=== PATIENT | male | born 1990 | race Caucasian/White ===

== ENCOUNTER 2017-05-01 08:35 | Inpatient (IN) | payer MEDICAID ==
[2017-05-01] MEDS: Celecoxib 200 MG Cap PO ONE (09:10)
[2017-05-01] MEDS ORDERED: Acetaminophen 500 MG Tab PO ONE (09:15)
[2017-05-01] MEDS ORDERED: Scopolamine 1.5 MG Transdermal Patch TOP SCH (09:15)
[2017-05-01] MEDS ORDERED: Gabapentin 300 MG Cap PO ONE (09:15)
[2017-05-01] MEDS ORDERED: Dextrose 5%-Lactated Ringers 1,000 ML IV SCH (09:15)
[2017-05-01] MEDS ORDERED: cefOXitin 2 GM in Sodium Chloride 0.9% 50 ML IV ONE (09:45)
[2017-05-01] MEDS ORDERED: Succinylcholine 200 MG/10 ML MDV ONE (10:06)
[2017-05-01] MEDS ORDERED: Neostigmine Methylsulfate 1 MG/ML 5 ML Syringe ONE (10:06)
[2017-05-01] MEDS ORDERED: Glycopyrrolate 0.2 MG/ML 5 ML MDV ONE (10:06)
[2017-05-01] MEDS ORDERED: Midazolam 1 MG/ML 2 ML SDV ONE (10:06)
[2017-05-01] MEDS ORDERED: Propofol 200 MG/20 ML SDV ONE (10:06)
[2017-05-01] MEDS ORDERED: Lactated Ringers 1,000 ML ONE ×2 (10:06→11:54)
[2017-05-01] MEDS ORDERED: Rocuronium 50 MG/5 ML Vial ONE (10:06)
[2017-05-01] MEDS ORDERED: Dexamethasone 4 MG/ML SDV ONE (10:06)
[2017-05-01] MEDS ORDERED: Ondansetron 4 MG/2 ML SDV ONE (10:06)
[2017-05-01] MEDS ORDERED: cefOXitin 2 GM Vial ONE (10:22)
[2017-05-01] MEDS ORDERED: Ropivacaine 60 ML, Dexamethasone 8 MG, EPINEPHrine 0.4 MG, Sodium Chloride 0.9% 17.6 ML NERVRT ONE ×4 (10:45)
[2017-05-01] MEDS ORDERED: Lidocaine 2% 100 MG/5 ML Syringe IVPUSH ONE (10:45)
[2017-05-01] MEDS ORDERED: Ketamine 500 MG/5 ML MDV IV ONE (10:45)
[2017-05-01] MEDS ORDERED: hydrOXYzine HCl 100 MG/2 ML SDV IM PRN (15:00)
[2017-05-01] MEDS ORDERED: Metoclopramide 10 MG/2 ML SDV IVPUSH PRN (15:00)
[2017-05-01] MEDS ORDERED: Ondansetron 4 MG/2 ML SDV IVPUSH PRN (15:00)
[2017-05-01] MEDS: Lidocaine 0.4%/D5W 2 GM/500 ML BAG IV SCH ×2 (15:00→16:02)
[2017-05-01] MEDS ORDERED: diphenhydrAMINE 50 MG/ML SDV IVPUSH PRN (15:00)
[2017-05-01] MEDS ORDERED: Labetalol 20 MG/4 ML Syringe IVPUSH PRN (15:00)
[2017-05-01] MEDS ORDERED: Pantoprazole 40 MG Vial IVPUSH SCH (16:00)
[2017-05-01] MEDS ORDERED: MVI, Adult with Vitamin K 10 ML, Thiamine 200 MG, Chromium/Copper/Mang/Selen/Zn 1 ML in... IV SCH ×4 (16:00)
[2017-05-01] MEDS: Gabapentin 250 MG/5 ML Solution ML 470 ML Bottle PO SCH ×2 (16:03→21:35)
[2017-05-01] MEDS: Acetaminophen Soln 650 MG/20.3 ML UD Cup PO SCH ×2 (16:03→21:35)
[2017-05-01] MEDS: SCOPOLAMINE PATCH CHECK TOP SCH (16:10)
[2017-05-01] MEDS: cefOXitin 2 GM in Sodium Chloride 0.9% 50 ML IV SCH ×2 (16:16→22:12)
[2017-05-01] MEDS: Heparin Sodium 5,000 Units/ML Vial SUBCUT SCH (17:17)
[2017-05-01] MEDS: Dextrose 5%-Lactated Ringers 1,000 ML IV SCH (22:14)
[2017-05-02] MEDS: Heparin Sodium 5,000 Units/ML Vial SUBCUT SCH ×3 (01:49→17:24)
[2017-05-02] MEDS: Lidocaine 0.4%/D5W 2 GM/500 ML BAG IV SCH (04:20)
[2017-05-02] MEDS: cefOXitin 2 GM in Sodium Chloride 0.9% 50 ML IV SCH (04:21)
[2017-05-02] MEDS: Dextrose 5%-Lactated Ringers 1,000 ML IV SCH (04:21)
[2017-05-02] MEDS: Acetaminophen Soln 650 MG/20.3 ML UD Cup PO SCH ×4 (04:21→21:11)
[2017-05-02] MEDS: Gabapentin 250 MG/5 ML Solution ML 470 ML Bottle PO SCH ×4 (05:39→21:11)
[2017-05-02] MEDS: Celecoxib 200 MG Cap PO SCH (08:15)
[2017-05-02] MEDS ORDERED: Dextrose 5%-Lactated Ringers 1,000 ML IV SCH (08:15)
[2017-05-02] MEDS ORDERED: Ondansetron 4 MG Tab.DIS PO PRN (08:18)
--- NOTE | 2017-05-02 09:20 | PN ---
DATE OF SERVICE: 05/02/2017 SUBJECTIVE: Burt is postop day 1. His pain has been controlled. He did not have an upper GI this morning because of the shrimp allergy. He is tolerating fluids well. He has been up ambulating several times. REVIEW OF SYSTEMS: Remainder of review of systems negative for any pertinent positives and negatives. OBJECTIVE: GENERAL: Burt Aguiar is a 26-year-old male. He is alert, oriented, quite talkative this morning. VITAL SIGNS: TPR is 97.5, 79, 20. Blood pressure 126/56. HEENT: Negative. NECK: Supple. HEART: Regular rate and rhythm. LUNGS: Clear. ABDOMEN: Dressings dry and intact. Abdominal binder is on. JUAN CARLOS drain put out 120 mL of a light pink serous drainage. EXTREMITIES: SCDs are on and there is no peripheral edema. ASSESSMENT: Laparoscopic gastric bypass surgery, liver biopsy, small bowel resection, and repair of diaphragmatic hernia for morbid obesity, hepatomegaly, foreshortened small bowel mesentery, and diaphragmatic hernia. Date of surgery 05/01/2017; surgeon, Evelio Morin MD. PLAN: 1. Decrease IV to 100 mL per hour. 2. Gastric bypass diet without cereal. 3. Dressing off, may shower. 4. Good pulmonary toilet encouraged. 5. We will evaluate p.r.bernard Zapata PA-C /[id number]
[2017-05-02] MEDS: SCOPOLAMINE PATCH CHECK TOP SCH (09:53)
[2017-05-02] MEDS ORDERED: MVI, Adult with Vitamin K 10 ML, Thiamine 200 MG, Chromium/Copper/Mang/Selen/Zn 1 ML in... IV SCH ×4 (16:00)
[2017-05-03] MEDS: Heparin Sodium 5,000 Units/ML Vial SUBCUT SCH (03:01)
[2017-05-03] MEDS: Acetaminophen Soln 650 MG/20.3 ML UD Cup PO SCH (03:01)
[2017-05-03] MEDS: Gabapentin 250 MG/5 ML Solution ML 470 ML Bottle PO SCH (05:56)
[2017-05-03] MEDS: Celecoxib 200 MG Cap PO SCH (08:12)
[2017-05-03] MEDS ORDERED: Cyanocobalamin (Vitamin B12) 1,000 MCG/ML SDV IM ONE (09:00)
--- NOTE | 2017-05-03 09:36 | OR ---
DATE OF PROCEDURE: 05/01/2017 PREOPERATIVE DIAGNOSIS: Morbid obesity. POSTOPERATIVE DIAGNOSES: 1. Morbid obesity. 2. Marked hepatomegaly. 3. Foreshortened, extremely fatty infiltrated, small bowel mesentery requiring small bowel resection to allow adequate mobility of jejunojejunostomy. 4. Paraesophageal diaphragmatic hernia. OPERATIVE PROCEDURES: 1. Laparoscopic Pearl-en-Y gastric bypass with long limb gastroenterostomy (26316). 2. Julito-Cut needle liver biopsy (43192). 3. Small bowel resection to facilitate mobility of jejunojejunostomy (11351). 4. Repair of paraesophageal diaphragmatic hernia (08177). ANESTHESIA: General. CALCIMINER: Sinai Zapata PA-C. INDICATIONS FOR PROCEDURE: This 26-year-old is presenting with longstanding morbid obesity and increasingly significant comorbidities. After preoperative evaluation and discussion, he wished to proceed with a gastric bypass procedure. Potential risks of the procedure including bleeding, infection, leaks from various GI tract closures, problems with bowel obstruction over time, along with the possibility of cardiopulmonary, septic, or hemorrhagic complications leading to were discussed, and the patient wishes to proceed. DETAILS OF PROCEDURE: The patient was taken to the operating room and placed in a supine position. After general endotracheal anesthesia was induced, he was converted to a lithotomy position and an orogastric tube was placed. Using continuous ultrasound, bilateral subcostal transversus abdominis plane blocks were placed using the standard formula. Following this, the abdomen was prepped and draped. At 15 cm inferior and 5 cm left of xiphoid process, a transverse incision was made and peritoneal cavity entered under direct vision with an Optiview trocar and inflated to 15 mmHg of CO2. Laparoscope was then reinserted. No underlying trocar insertion site injuries were seen. Following this, 5 additional trocars were placed across the upper and mid abdomen, and general exploration was undertaken. The patient was noted to have marked hepatomegaly with liver grossly fatty infiltrated, roughly 3 times normal in terms of total volume. The Julito-Cut needle biopsies were obtained from the left lobe of liver. Minimal bleeding from the biopsy site was controlled with electrocautery. At this point, the omentum was divided off the midline at the level of the transverse colon. This allowed identification of the small bowel to the ligament of Treitz. Small bowel was then traced out 150 cm distal to that point and was divided transversely with a ALLEY stapler. Small bowel was then traced out an additional 200 cm, which would, therefore, provide a Pearl limb of 200 cm. The overall mesentery at this point was extremely fattened and foreshortened. Given this, roughly 15 cm of the biliopancreatic limb was resected with division of the underlying mesentery with Harmonic scalpel. The small bowel was then divided with a ALLEY puga load. The small bowel specimen was then delivered from the field. At that level, then the jejunojejunostomy was accomplished with internal firing of the Endo- ALLEY 60 mm stapler. The common opening was closed transversely with the same stapler, the angles anastomosed, and the mesenteric defect approximated with some 0 Ethibond seromuscular stitch, along with fibrin sealant. The Pearl limb was then able to be mobilized to an antecolic approach up to the level of the gastroesophageal junction without tension. The liver was then retracted anteriorly, and the patient was noted to have a moderate-sized paraesophageal hernia with prolapse of some of the perigastric fat and stomach in a plane anterior to the course of the esophagus. This was reduced and the peritoneum overlying it incised and reflected downward. The anterior repair of the diaphragmatic hernia was then accomplished with a series of 0 Ethibond sutures reinforced with PTFE pledgets. At this point, the gastrointestinal balloon catheter was inflated to 15 mL and pulled up snugly against the EG junction, gastric wall over the apex balloon was then marked with electrocautery and balloon catheter pulled up from the esophagus. The lesser omental tissue adjacent to gastric cardia was then incised, allowing dissection behind the stomach at that level. The pouch formation was initiated with a transverse firing of the ALLEY stapler at the level of the cauterized ba of the stomach and then completed with 2 additional firings of ALLEY stapler up to and through the angle of His. Upon completion of the pouch, both staple lines were noted to be intact. The anvil of a 25 mm EEA stapler was then attached to [place] sump type tube. The latter was brought down through the mouth and taken out through a small opening in the gastric pouch, allowing the anvil likewise to be pulled down to within the gastric pouch. The divided end of the Pearl limb was then opened, main body of the EEA stapler passed several centimeters in the lumen of small bowel, brought up the anvil and united with it, thus creating the gastrojejunostomy. Upon removal of the stapler, double donuts of mucosa were noted within it. Small bowel was closed off with a vascular staple line. Gastrojejunostomy was then reinforced with some 3-0 Vicryl seromuscular stitch, along with fibrin sealant. A leak test was accomplished with injection of 120 mL of air into the gastric pouch while it was submerged with a cefoxitin-containing saline solution. No leaks were identified. One Leif-Jacobsen drain was then placed through the left lateral trocar site and positioned adjacent to the gastrojejunostomy and from there up into the splenic fossa. The trocars were then sequentially removed, and the peritoneal cavity deflated. The incision was closed with some 4-0 Vicryl skin stitch and dressing applied. The drain was affixed with a 4-0 Vicryl stitch as well. The patient was taken to the recovery room in a satisfactory condition. Physician market research assistant, Sinai Zapata, played an essential role in assisting in this case, helping to position the patient, retract structures as needed, as well as suturing and cutting sutures when indicated. Her presence improved patient safety and decreased the operative time. Evelio Morin MD /[id number]
[2017-05-03 10:44] VITALS: BP 120/65
--- NOTE | 2017-05-04 09:00 | DISCH ---
ADMISSION DIAGNOSIS: Morbid obesity. DISCHARGE DIAGNOSES: Status post Pearl-en-Y laparoscopic gastric bypass surgery, liver biopsy, small bowel resection, repair of diaphragmatic hernia for morbid obesity, hepatomegaly, foreshortened small bowel mesentery, and diaphragmatic hernia. DATE OF SURGERY: 05/01/2017. SURGEON: Evelio Morin M.D. HISTORY: Burt Aguiar is a pleasant 26-year-old male with longstanding history of morbid obesity and increasing comorbidities. After preoperative evaluation and discussion of possible risks and possible complications, he wished to proceed with surgical procedure. HOSPITAL COURSE: Burt had his surgery on 05/01/2017. He had no operative complications. On postop day #1, he was started on a step-2 gastric bypass diet with no cereal. His activity was good. He tolerated his step-2 gastric bypass diet. Vital signs remained stable and he was able to be discharged to home on postop day #2. PHYSICAL EXAMINATION: GENERAL: Burt Aguiar is a 26-year-old male. VITAL SIGNS: Height is 5 feet and 10.5 inches. Weight is 372 pounds. TPR 97.2, 71, 18, blood pressure 118/49. HEENT: Negative. NECK: Supple. HEART: Regular rate and rhythm. LUNGS: Clear. ABDOMEN: Incisions look good. JUAN CARLOS drain will be removed, 4x4s over JUAN CARLOS drain site. Abdominal binder is on. EXTREMITIES: Without peripheral edema. DISPOSITION: Discharged to home. CONDITION: Stable and improving. FOLLOWUP APPOINTMENT: With Sinai Zapata PA-C, at [facility] on 05/10/2017 at 11:15 a.m. DISCHARGE MEDICATIONS: Home medications: 1. Tylenol 650 mg/20.3 mL oral q.6 hours, he is to take this for 14 days as scheduled. 2. Vitamin B12, 1000 mcg sublingual. 3. Neurontin 300 mg 4 times a day daily and 250 mg/5 mL for 14 days. 4. Toradol 10 mg q.6 hours for 5 days, take with protein shakes. 5. Multivitamin one chewable twice daily. 6. Omeprazole 20 mg orally twice daily, #28. 7. Zofran 4 mg ODT q.4 hours p.r.n. for nausea. He is to discontinue taking his calcium citrate, vitamin D3, ibuprofen, and vitamin B. DISCHARGE DIET: Drink 8 to 10 glasses of water a day. Diet is step-2 gastric bypass diet with no cereal. ACTIVITY: As tolerated. No lifting greater than 10 pounds for 2 weeks. Driving: Do not drive for 1 week. Shower/bathing: May shower. DISCHARGE INSTRUCTIONS: Notify provider of fever, nausea, or vomiting. Keep site clean and dry. Wear abdominal binder for 2 weeks and as tolerated. Use incentive spirometer 10 times every hour while awake.
== END 2017-05-03 10:30 | disposition home or self-care (01) | DRG 621 ==
LOC: JP.SDS 08:35 → EDSTATUS 12:15 → JP.MS 13:03 → JP.2SS 13:15
PROVIDERS: ADMIT Surgery; ATTEND Surgery
PROC: 0D164ZA Bypass Stomach to Jejunum, Percutaneous Endoscopic Approach (ICD-10-PCS; principal; 2017-05-01)
PROC: 0FB24ZX Excision of Left Lobe Liver, Percutaneous Endoscopic Approach, Diagnostic (ICD-10-PCS; principal; 2017-05-01)
PROC: 0BQS4ZZ (ICD-10-PCS; principal; 2017-05-01)
PROC: 0BQR4ZZ (ICD-10-PCS; principal; 2017-05-01)
PROC: 3E0T3BZ Introduction of Anesthetic Agent into Peripheral Nerves and Plexi, Percutaneous Approach (ICD-10-PCS; principal; 2017-05-01)
PROC: 0DB94ZX Excision of Duodenum, Percutaneous Endoscopic Approach, Diagnostic (ICD-10-PCS; principal; 2017-05-01)
DX: E66.01 Morbid (severe) obesity due to excess calories (principal); Z68.43 Body mass index [BMI] 50.0-59.9, adult; R16.0 Hepatomegaly, not elsewhere classified; K44.9 Diaphragmatic hernia without obstruction or gangrene; K92.89 Other specified diseases of the digestive system; K76.0 Fatty (change of) liver, not elsewhere classified; K21.9 Gastro-esophageal reflux disease without esophagitis; G47.33 Obstructive sleep apnea (adult) (pediatric); F50.81 Binge eating disorder; Z91.013 Allergy to seafood; Z91.048 Other nonmedicinal substance allergy status
CPT/HCPCS: 36415; 86850; 86900; 86901; 88307; 88313; A9270-GY; C9113; J0171; J0330; J0694; J1100; J1644; J2001; J2250; J2405; J2704; J2710; J2795; J3010; J3411; J3420; J7030; J7040; J7042; J7050; J7120

== ENCOUNTER 2017-05-07 23:12 | Inpatient (IN) | payer MEDICAID ==
[2017-05-07] MEDS ORDERED: HYDROmorphone 1 MG/ML Syringe IVPUSH ONE (23:32)
--- NOTE | 2017-05-07 23:38 | EDM.PDOC ---
ED HPI GENERAL MEDICAL PROBLEM - General Chief Complaint: Abdominal Pain Stated Complaint: MEDICAL VIA TRI Time Seen by Provider: 05/07/17 23:30 Source of Information: Reports: Patient, EMS, Provider History Limitations: Reports: No Limitations - History of Present Illness INITIAL COMMENTS - FREE TEXT/NARRATIVE: 26-year-old male who underwent gastric bypass 6 days ago presented to a local hospital with abdominal pain that worsened over the past 48 hours. A workup including a CT scanning revealed fairly extensive portal vein thrombosis with edema of the small bowel and possible bowel infarction. He's been given 3 mg of Dilaudid IV along with IV antibiotics and fluids. He is afebrile but continues to have significant pain. He is not tachycardic but moderately hypotensive. Fluids were continued. He was sent up for a surgical consultation. Onset: Gradual (Over the past 48 hours) Location: Reports: Abdomen Severity: Moderate Worsens with: Reports: Movement Associated Symptoms: Reports: Loss of Appetite, Malaise. Denies: Fever/Chills Abdomen Pain Score (Numeric/FACES): 10 - Related Data Allergies Allergy/AdvReac Type Severity Reaction Status Date / Time Bleach (Sodium Hypochlorite) Allergy Blisters Verified 05/01/17 08:59 shrimp Allergy Cannot Verified 04/27/17 09:38 Remember Home Meds: Home Meds Acetaminophen [Tylenol] 650 mg PO Q6H 14 Days #1 bottle 05/02/17 [Rx] Cyanocobalamin (Vitamin B-12) [Vitamin B-12] 1,000 mcg SL DAILY #100 tab.subl [Rx] Multivitamin with Iron [Animal Shapes Plus Iron] 1 each PO BID #100 tab.chew 08/06 [Rx] Ondansetron [Zofran ODT] 4 mg PO Q4H PRN #30 tab.dis 05/02/17 [Rx] Gabapentin [Neurontin] 300 mg PO QID 14 Days ml 05/03/17 [Rx] Ketorolac [Toradol] 10 mg PO Q6H #20 tab 05/03/17 [Rx] Omeprazole 20 mg PO BIDAC #28 cap.cr 05/03/17 [Rx] Past Medical History HEENT History: Reports: Allergic Rhinitis, Impaired Vision Other HEENT History: wears glasses Cardiovascular History: Reports: Heart Murmur Respiratory History: Reports: Sleep Apnea Gastrointestinal History: Reports: GERD Musculoskeletal History: Reports: Back Pain, Chronic Endocrine/Metabolic History: Reports: Obesity/BMI 30+ Dermatologic History: Reports: Eczema - Infectious Disease History Infectious Disease History: Reports: Chicken Pox, Influenza - Past Surgical History HEENT Surgical History: Reports: None Cardiovascular Surgical History: Reports: None Respiratory Surgical History: Reports: None GI Surgical History: Reports: None Endocrine Surgical History: Reports: None Musculoskeletal Surgical History: Reports: None Dermatological Surgical History: Reports: None Social & Family History - Family History HEENT: Reports: Allergic Rhinitis Cardiac: Reports: PR, Stent GI: Reports: Irritable Bowel Syndrome OBGYN: Reports: Endometriosis, Other (See Below) Other OBGYN Family History: hyperplasia Musculoskeletal: Reports: Back pain, Chronic Neurological: Reports: CVA, Migraines Psychiatric: Reports: Bipolar Endocrine/Metabolic: Reports: Diabetes, type II, Obesity/MBI 30+ Dermatologic: Reports: Urticaria Oncologic: Reports: Colon, Lung, Other (See Below) Other Oncologic Family History: testicular cancer; leomyosarcoma; teratoma - Tobacco Use Smoking Status *Q: Former Smoker Years of Tobacco use: 6 Used Tobacco, but Quit: Yes Month Tobacco Last Used: 09/2016 Second Hand Smoke Exposure: Yes - Caffeine Use Caffeine Use: Reports: None - Recreational Drug Use Recreational Drug Use: No ED ROS GENERAL - Review of Systems Review Of Systems: See Below Constitutional: Reports: Malaise. Denies: Fever GI/Abdominal: Reports: Abdominal Pain : Reports: No Symptoms Psychiatric: Reports: No Symptoms ED EXAM, GI/ABD - Physical Exam Exam: See Below Exam Limited By: No Limitations General Appearance: Alert, Mild Distress (Patient is fairly uncomfortable) Eyes: Bilateral: Normal Appearance (No jaundice) Respiratory/Chest: No Respiratory Distress, Lungs Clear Cardiovascular: Regular Rate, Rhythm GI/Abdominal Exam: Soft, Tender (Patient reacts with tenderness to palpation of the abdomen, especially the upper abdomen. His surgical incisions look excellent ) Course - Vital Signs Last Recorded V/S: Last Vital Signs Temp 98.2 F 05/07/17 23:26 Pulse 93 05/08/17 00:00 Resp 16 05/07/17 23:26 BP 145/68 H 05/08/17 00:00 Pulse Ox 94 L 05/08/17 00:00 - Orders/Labs/Meds Orders: Active Orders 24 hr Category Date Time Status Patient Status [ADT] Routine ADT 05/08/17 00:27 Active Intake and Output [RC] QSHIFT Care 05/08/17 00:28 Active Oxygen Therapy [RC] PRN Care 05/08/17 00:27 Active RT Incentive Spirometry [RC] ASDIRECTED Care 05/08/17 00:27 Active Up ad Ysabel [RC] ASDIRECTED Care 05/08/17 00:27 Active Vital Signs [RC] PER UNIT ROUTINE Care 05/08/17 00:27 Active Nothing Per Oral Diet [DIET] Diet 05/08/17 Breakfast Active BASIC METABOLIC PANEL,BMP [CHEM] AM Lab 05/08/17 05:11 Ordered CBC WITH AUTO DIFF [HEME] AM Lab 05/08/17 05:11 Ordered PACKED CELLS [RED BLOOD CELLS LP] [BBK] Stat Lab 05/07/17 23:59 Results TYPE AND SCREEN [BBK] Stat Lab 05/07/17 23:59 Results diphenhydrAMINE [Benadryl] Med 05/08/17 00:27 Active 50 mg IVPUSH Q4H PRN Abdominal Binder [OM.PC] Per Unit Routine Oth 05/08/17 00:28 Ordered Resuscitation Status Routine Resus Stat 05/08/17 00:27 Ordered Medication Orders Diphenhydramine HCl (Benadryl) 50 mg IVPUSH Q4H PRN PRN Reason: Itching Labs: Laboratory Tests 05/08/17 Range/Units 00:05 Blood Type A POSITIVE Gel Antibody Screen Negative Crossmatch See Detail Meds: Medications Generic Name Dose Route Start Last Admin Trade Name Freq PRN Reason Stop Dose Admin Diphenhydramine HCl 50 mg 05/08/17 00:27 Benadryl IVPUSH Q4H PRN Itching Discontinued Medications Generic Name Dose Route Start Last Admin Trade Name Freq PRN Reason Stop Dose Admin Bupivacaine HCl/Epinephrine Bitart Confirm 05/07/17 23:55 Marcaine 0.5%/Epinephrine 1:200,000 Administered 05/07/17 23:56 Dose 50 ml .ROUTE .STK-MED ONE Dexamethasone Confirm 05/08/17 00:13 Dexamethasone Administered 05/08/17 00:14 Dose 4 mg .ROUTE .STK-MED ONE Fentanyl Citrate Confirm 05/08/17 00:13 Fentanyl Administered 05/08/17 00:14 Dose 500 mcg .ROUTE .STK-MED ONE Glycopyrrolate Confirm 05/08/17 00:13 Robinul Administered 05/08/17 00:14 Dose 1 mg .ROUTE .STK-MED ONE Hydromorphone HCl 1 mg 05/07/17 23:32 05/07/17 23:36 Dilaudid IVPUSH 05/07/17 23:33 1 mg ONETIME ONE Administration Lactated Ringer's Confirm 05/08/17 00:37 Ringers, Lactated Administered 05/08/17 00:38 Dose 1,000 mls @ as directed .ROUTE .STK-MED ONE Neostigmine Methylsulfate Confirm 05/08/17 00:13 Neostigmine Administered 05/08/17 00:14 Dose 5 mg .ROUTE .STK-MED ONE Ondansetron HCl Confirm 05/08/17 00:13 Zofran Administered 05/08/17 00:14 Dose 4 mg .ROUTE .STK-MED ONE Propofol Confirm 05/08/17 00:13 Diprivan 20 Ml Administered 05/08/17 00:14 Dose 200 mg .ROUTE .STK-MED ONE Rocuronium [place] Confirm 05/08/17 00:13 Zemuron Administered 05/08/17 00:14 Dose 50 mg .ROUTE .STK-MED ONE Succinylcholine Chloride Confirm 05/08/17 00:13 Quelicin Administered 05/08/17 00:14 Dose 200 mg .ROUTE .STK-MED ONE - Re-Assessments/Exams Free Text/Narrative Re-Assessment/Exam: 05/07/17 23:38 IV fluids were continued, the patient was given an additional 1 [address] of Dilaudid IV. Dr. Enrique was consulted as he was expecting the patient. Departure - Departure Time of Disposition: 00:55 Disposition: Admitted As Inpatient 68 Condition: Fair Clinical Impression: Abdominal pain Qualifiers: Abdominal location: generalized Qualified Code(s): R10.84 - Generalized abdominal pain - Discharge Information
[2017-05-07] MEDS ORDERED: Bupivacaine 0.5%/EPINEPHrine 1:200,000 50 ML MDV ONE (23:55)
[2017-05-08] MEDS ORDERED: Neostigmine Methylsulfate 1 MG/ML 5 ML Syringe ONE (00:13)
[2017-05-08] MEDS ORDERED: Succinylcholine 200 MG/10 ML MDV ONE (00:13)
[2017-05-08] MEDS ORDERED: Rocuronium 50 MG/5 ML Vial ONE ×2 (00:13→01:40)
[2017-05-08] MEDS ORDERED: Propofol 200 MG/20 ML SDV ONE (00:13)
[2017-05-08] MEDS ORDERED: Dexamethasone 4 MG/ML SDV ONE (00:13)
[2017-05-08] MEDS ORDERED: Glycopyrrolate 0.2 MG/ML 5 ML MDV ONE (00:13)
[2017-05-08] MEDS ORDERED: Ondansetron 4 MG/2 ML SDV ONE (00:13)
[2017-05-08] MEDS ORDERED: diphenhydrAMINE 50 MG/ML SDV IVPUSH PRN (00:27)
[2017-05-08] MEDS ORDERED: Lactated Ringers 1,000 ML ONE (00:37)
[2017-05-08] MEDS ORDERED: Benzocaine/Cetylpyridinium/Menthol Lozenge MUCMEM PRN (02:09)
[2017-05-08] MEDS: Sodium Chloride 0.9% 1,000 ML IV SCH ×3 (03:30→20:01)
[2017-05-08] MEDS: fentaNYL/Normal Saline 600 MCG/30 ML PCA Vial IV SCH ×2 (03:31→23:45)
[2017-05-08] MEDS: Heparin Sodium/D5W 25,000 UNITS/500 ML BAG IV SCH ×2 (03:33→18:43)
--- NOTE | 2017-05-08 04:22 | CONS ---
DATE OF SERVICE: 05/08/2017 REFERRING PHYSICIAN: CONSULTING PHYSICIAN: Hesham Enrique MD REASON FOR CONSULTATION: Evaluation of bariatric patient. HISTORY OF PRESENT ILLNESS: This is a 26-year-old male, who on 05/01/2017, underwent a laparoscopic Pearl-en-Y with a small bowel resection and repair of paraesophageal hernia. The patient was advanced on his diet and was subsequently discharged on postoperative day number 2. The patient presented to an outside emergency room with abdominal pain, and a CT scan was performed. The CT scan report was requested but was not sent along with the patient tonight. However, the summation was verbally transferred to us, and it apparently shows inflammation of the jejunum in addition to portal venous thrombosis. The patient presents with pain, which is 3 to 4 out of 10, diffuse in the abdomen. PAST MEDICAL HISTORY: Sleep apnea, morbid obesity, gastroesophageal reflux disease, binge eating, obstructive sleep apnea. FAMILY HISTORY: Diabetes. SOCIAL HISTORY: He is employed in the [employer] business. REVIEW OF SYSTEMS: GENERAL: As above. SKIN: No symptoms. EYES: No symptoms. EARS: No changes. RESPIRATORY: No shortness of breath. CARDIOVASCULAR: No chest pain. GASTROINTESTINAL: Reflux as above. NEUROLOGICAL: No symptoms. PSYCH: No symptoms. PHYSICAL EXAMINATION: VITAL SIGNS: Temperature 98.2, blood pressure reported 86/51, respirations 16, and 96% on room air. GENERAL: The patient is resting comfortably. HEENT: Pupils are equal. NECK: Obese. CARDIOVASCULAR: Regular rate. RESPIRATORY: Lungs are clear to auscultation bilaterally. ABDOMEN: Bowel sounds positive. Pain with palpation, diffuse. EXTREMITIES: Full range of motion. NEUROLOGICAL: Oriented x3. PSYCH: No gross depression. LABORATORY DATA: Laboratory results were also not sent along with the patient, but the hemoglobin was reported per family as 15. IMAGING DATA: As above. ASSESSMENT AND PLAN: The patient will be taken to the operating room for diagnostic laparoscopy. This patient is a high risk patient with an active venous thrombosis. He has been heparinized at the outside facility, and he has been started on a heparin drip. Postoperatively, the patient will be placed on heparin weight based protocol. The plan will be diagnostic laparoscopy to evaluate for possible ischemic bowel. This is noted to be found that he will undergo a small resection of the affected sections. We discussed risks, benefits, alternatives, limitations including, but not limited to infection, bleeding, the risk of cardiovascular or cardiorespiratory compromise including due to the potential for pulmonary embolism. We will discuss the possibility of open surgery. The patient and family understand these risks and wish to proceed. Hesham Enrique MD /[id number] MTDD
[2017-05-08] MEDS: fentaNYL 100 MCG/2 ML SDV IVPUSH PRN ×8 (04:30→23:46)
[2017-05-08] MEDS: hydrOXYzine HCl 100 MG/2 ML SDV IM PRN ×2 (07:46→21:46)
--- NOTE | 2017-05-08 09:26 | PN ---
DATE OF SERVICE: 05/08/2017 SUBJECTIVE: The patient did well overnight. Pain is controlled. No nausea, vomiting, shortness of breath, or chest pain. OBJECTIVE: VITAL SIGNS: Stable. CARDIOVASCULAR: Regular rhythm and rate. RESPIRATORY: Lungs clear to consultation bilaterally. ABDOMEN: Dressing is intact. ASSESSMENT: Status post small bowel resection. PLAN: 1. Thrombosis. We are still awaiting the official CT scan report from [place], which was not sent to us and is currently unavailable. Nonetheless, we will continue the heparin- weight based anticoagulation protocol. 2. Small bowel resection. The drain output is blood tinged. No evidence of anastomotic leak or failure. 3. Prophylaxis. The patient is already on heparin-weight based protocol as above. SCDs are also noted. We will work on early ambulation today. 4. Diet. We will keep him n.p.o. at this time. 5. Fluid, electrolyte, nutrition. The patient had good urine output overnight. We will continue with fluids at this time and convert to maintenance fluids in the a.m. 6. Hematology. The patient's hemoglobin remained within the normal range. He does have typed and crossed units on standby, and these probably will not be used if no evidence of bleeding is noted in the next 48 hours. 7. Pain management. The patient states his pain is well controlled. The GAS PUMPER is adjunct or working effectively and we will convert this to p.o. pain medication at a later date. Hesham Enrique MD /[id number]
--- NOTE | 2017-05-08 09:57 | PCM.CONS ---
H&P History of Present Illness - General Date of Service: 05/08/17 Admit Problem/Dx: Admission Diagnosis/Problem Admission Diagnosis/Problem Thrombosis of mesenteric vein Source of Information: Patient, Provider History Limitations: Reports: No Limitations - History of Present Illness Initial Comments - Free Text/Narative: Mr. Aguiar is a 26-year-old gentleman who I been asked to see by Dr. Enrique for further suggestions concerning management of anticoagulation during the postoperative period. Mr. Aguiar underwent gastric bypass surgery one week ago when initially did well but over the past few days developed significant abdominal pain. He was evaluated in the emergency room at [facility] in [place], [place] scan of the abdomen was obtained showing evidence of small bowel inflammation as well as portal vein thrombosis. He was transferred here and taken to the operating room by Dr. Enrique where a portion of small bowel was resected. He is been stable during the initial postoperative period. Abdomen Pain Score (Numeric/FACES): 10 - Related Data Allergies/Adverse Reactions: Allergies Allergy/AdvReac Type Severity Reaction Status Date / Time Bleach (Sodium Hypochlorite) Allergy Blisters Verified 05/01/17 08:59 shrimp Allergy Cannot Verified 04/27/17 09:38 Remember Home Medications: Home Meds Acetaminophen [Tylenol] 650 mg PO Q6H 14 Days #1 bottle 05/02/17 [Rx] Cyanocobalamin (Vitamin B-12) [Vitamin B-12] 1,000 mcg SL DAILY #100 tab.subl [Rx] Multivitamin with Iron [Animal Shapes Plus Iron] 1 each PO BID #100 tab.chew 08/06 [Rx] Ondansetron [Zofran ODT] 4 mg PO Q4H PRN #30 tab.dis 05/02/17 [Rx] Gabapentin [Neurontin] 300 mg PO QID 14 Days ml 05/03/17 [Rx] Ketorolac [Toradol] 10 mg PO Q6H #20 tab 05/03/17 [Rx] Omeprazole 20 mg PO BIDAC #28 cap.cr 05/03/17 [Rx] Past Medical History HEENT History: Reports: Allergic Rhinitis, Impaired Vision Other HEENT History: wears glasses Cardiovascular History: Reports: Heart Murmur Respiratory History: Reports: Sleep Apnea Gastrointestinal History: Reports: GERD Musculoskeletal History: Reports: Back Pain, Chronic Endocrine/Metabolic History: Reports: Obesity/BMI 30+ Dermatologic History: Reports: Eczema - Infectious Disease History Infectious Disease History: Reports: Chicken Pox, Influenza - Past Surgical History HEENT Surgical History: Reports: None Cardiovascular Surgical History: Reports: None Respiratory Surgical History: Reports: None GI Surgical History: Reports: None Endocrine Surgical History: Reports: None Musculoskeletal Surgical History: Reports: None Dermatological Surgical History: Reports: None Social & Family History - Family History HEENT: Reports: Allergic Rhinitis Cardiac: Reports: OR, Stent GI: Reports: Irritable Bowel Syndrome OBGYN: Reports: Endometriosis, Other (See Below) Other OBGYN Family History: hyperplasia Musculoskeletal: Reports: Back pain, Chronic Neurological: Reports: CVA, Migraines Psychiatric: Reports: Bipolar Endocrine/Metabolic: Reports: Diabetes, type II, Obesity/MBI 30+ Dermatologic: Reports: Urticaria Oncologic: Reports: Colon, Lung, Other (See Below) Other Oncologic Family History: testicular cancer; leomyosarcoma; teratoma - Tobacco Use Smoking Status *Q: Former Smoker Years of Tobacco use: 6 Used Tobacco, but Quit: Yes Month Tobacco Last Used: 09/2016 Second Hand Smoke Exposure: Yes - Caffeine Use Caffeine Use: Reports: None - Recreational Drug Use Recreational Drug Use: No H&P Review of Systems - Review of Systems: Review Of Systems: See Below General: Reports: No Symptoms Pulmonary: Reports: No Symptoms Cardiovascular: Reports: No Symptoms Gastrointestinal: Reports: Abdominal Pain. Denies: Black Stool, Bloody Stool, Constipation, Diarrhea, Nausea, Vomiting Exam - Exam Exam: See Below - Vital Signs Vital Signs: Last Vital Signs Temp 99.3 F 05/08/17 08:00 Pulse 99 05/08/17 08:56 Resp 18 05/08/17 08:56 BP 152/73 H 05/08/17 08:56 Pulse Ox 98 05/08/17 08:56 Weight: 354 lb 15.108 oz - Exam General: Sedated Neck: Supple, Trachea Midline, +2 Carotid Pulse wo Bruit Lungs: Clear to Auscultation, Normal Respiratory Effort Cardiovascular: Regular Rhythm, Normal S1, Normal S2, Tachycardia. No: Systolic Murmur, Diastolic Murmur GI/Abdominal Exam: Soft, No Organomegaly, No Distention, Tender - Patient Data Lab Results Last 24 hrs: Laboratory Results - last 24 hr 05/08/17 05/08/17 05/08/17 Range/Units 02:48 05:38 05:38 WBC 18.6 H (4.5-11.0) K/uL RBC 5.28 (4.30-5.90) M/uL Hgb 14.7 (12.0-15.0) g/dL Hct 44.6 (40.0-54.0) % MCV 85 (80-98) fL MCH 28 (27-31) pg MCHC 33 (32-36) % Plt Count 238 (150-400) K/uL Neut % (Auto) 90 H (36-66) % Lymph % (Auto) 4 L (24-44) % Ocean % (Auto) 6 (2-6) % Eos % (Auto) 0 L (2-4) % Baso % (Auto) 0 (0-1) % APTT 26.6 L (27.0-36.0) sec Sodium 139 L (140-148) mmol/L Potassium 5.0 (3.6-5.2) mmol/L Chloride 106 (100-108) mmol/L Carbon Dioxide 23 (21-32) mmol/L Anion Gap 15.0 H (5.0-14.0) mmol/L BUN 14 (7-18) mg/dL Creatinine 1.1 (0.8-1.3) mg/dL Est Cr Clr Drug Dosing 106.92 mL/min Estimated GFR (MDRD) > 60 (>60) Glucose 199 H (74-106) mg/dL Calcium 8.3 L (8.5-10.1) mg/dL 05/08/17 Range/Units 08:39 WBC (4.5-11.0) K/uL RBC (4.30-5.90) M/uL Hgb (12.0-15.0) g/dL Hct (40.0-54.0) % MCV (80-98) fL MCH (27-31) pg MCHC (32-36) % Plt Count (150-400) K/uL Neut % (Auto) (36-66) % Lymph % (Auto) (24-44) % Ocean % (Auto) (2-6) % Eos % (Auto) (2-4) % Baso % (Auto) (0-1) % APTT 28.0 (27.0-36.0) sec Sodium (140-148) mmol/L Potassium (3.6-5.2) mmol/L Chloride (100-108) mmol/L Carbon Dioxide (21-32) mmol/L Anion Gap (5.0-14.0) mmol/L BUN (7-18) mg/dL Creatinine (0.8-1.3) mg/dL Est Cr Clr Drug Dosing mL/min Estimated GFR (MDRD) (>60) Glucose (74-106) mg/dL Calcium (8.5-10.1) mg/dL Result Diagrams: 05/08/17 05:38 05/08/17 05:38 Consult PN Assessment/Plan Procedures: Procedures BLOOD TYPING SEROLOGIC ABO (10/10/16) BLOOD TYPING SEROLOGIC RH(D) (10/10/16) RBC ANTIBODY SCREEN (10/10/16) Problem List Initiated/Reviewed/Updated: Yes Plan: ASSESSMENT AND RECOMMENDATIONS PORTAL VEIN THROMBOSIS -Weight-based IV heparin per protocol -Initiate oral anticoagulation with warfarin when able to take by mouth meds -Plan for 48 hours of IV heparin and then could consider transitioned to Lovenox -Plan for at least 5 days of overlap therapy STATUS POST PARTIAL SMALL BOWEL RESECTION -Postoperative care per Dr. Enrique Requesting Provider: ARMANI Date Consult Requested: 05/08/17 Reason for Consult: Management of anticoagulation Patient History Reviewed: Yes
[2017-05-08] MEDS ORDERED: Heparin Sodium 5,000 Units/ML Vial IV ONE (10:00)
--- NOTE | 2017-05-08 12:56 | OR ---
DATE OF PROCEDURE: 05/07/2017 PROCEDURE: 1. Diagnostic laparoscopy (29568). 2. Resection of small bowel (05103) with anastomosis. 3. Resection of additional small bowel/resection of additional anastomosis (54439). COMPLICATIONS: None. MANAGER CULINARY: None. ANESTHETIC: General/local. INDICATIONS: A 26-year-old male with previous Pearl-en-Y. The patient presented to an outside facility and was noted to have portal vein thrombosis in conjunction with a concerning area of small bowel. RISKS: Risks, benefits, alternatives, and limitations including, but not limited to, infection, bleeding, perforation to bowel, requirement for reoperation, small bowel leaks, injury to abdominal structures, sepsis, abscess formation, and other risks not listed here were explained to the patient, and he wished to proceed. PREOPERATIVE DIAGNOSIS: Small bowel ischemia. POSTOPERATIVE DIAGNOSIS: Small bowel ischemia. FINDINGS: Complete ischemia of the jejunojejunal anastomosis (fully resected and reanastomosed). PROCEDURE IN DETAIL: The patient was placed in a supine position. The previous camera port site was used to access the abdomen. The stitches were cut, and the Optiview trocar was gently advanced into the abdominal cavity. This was subsequently insufflated without difficulty. Two additional 5 mm ports would be utilized using the previous port sites in the right upper abdomen. The Pearl-en-Y limb was inspected from the proximal anastomosis. This was followed down to the jejunojejunal anastomosis, which was noted to be infarcted. Small bowel was continued to be tracked down and no other abnormalities noted. The colon was also noted to be normal. There was a dense amount of inflammation associated with this ischemic/necrotic area of bowel. Therefore, the diagnostic laparoscopy was then terminated, and the patient was converted to an open small bowel resection. Small bowel resection would be performed in the following manner: Using white load staplers, the mesenteric aspect of the bowel would be transected. This was transected close to the small bowel to facilitate maximum survival of the vascular arcade. A blue load stapler was then used to transect the biliary limb, common channel, and Pearl-en- Y limb respectively. This was then sent as specimen. The bowel would then be reanastomosed with a 2 anastomoses type configuration. The bile limb would be proximal and the anastomosis of the Pearl-en-Y limb would be distal. The only concerning area was there was limited mobility of the biliary channel. The anastomosis would be performed by placing Vicryl stitches to approximate and coordinate the anastomosis. Cautery was used to create a defect in the bowel, and 2 blue load staplers would be used to create a double sized anastomosis. Allis clamps were then used to transect the bowel defect. Once the proximal anastomosis was performed, the Pearl-en-Y limb anastomosis was then performed next. Again, 2 nicks were created in the small bowel. Of note, a DeBakey was advanced in the common channel up to the biliary limb, which was a few centimeters away to verify that there was a lumen allowing bile to pass without difficulty and this was noted. This DeBakey was then sent off the field and not used again due to contamination. These anastomoses were also be a double anastomoses and be performed in a same manner using blue load staplers. Once both anastomoses were complete, the abdomen was thoroughly irrigated. Antimesenteric stitching was placed to reduce the potential for internal hernias. A 10 mm Tisseel was used over both anastomoses. Two 10 flat Leif-Jacobsen drains were placed in proximity to the anastomoses. The fascia was then closed with #0 Vicryl. Subcutaneous tissue was irrigated and closed with Vicryl suture and skin with suly. Local anesthetic was applied. The patient tolerated the procedure well. Hesham Enrique MD /[id number]
[2017-05-08] MEDS: Heparin Sodium 5,000 Units/ML Vial IV PRN (17:05)
[2017-05-09] MEDS: Heparin Sodium 5,000 Units/ML Vial IV PRN (00:05)
[2017-05-09] MEDS: fentaNYL 100 MCG/2 ML SDV IVPUSH PRN ×7 (02:58→20:41)
[2017-05-09] MEDS: Sodium Chloride 0.9% 1,000 ML IV SCH (03:28)
[2017-05-09] MEDS: Heparin Sodium/D5W 25,000 UNITS/500 ML BAG IV SCH ×3 (05:06→23:14)
[2017-05-09] MEDS ORDERED: fentaNYL/Normal Saline 600 MCG/30 ML PCA Vial IV SCH (05:23)
[2017-05-09] MEDS ORDERED: Naloxone 0.4 MG/ML SDV IV PRN (07:10)
[2017-05-09] MEDS: D5 1/2 NS w/ 20 mEq/L KCl 1,000 ML IV SCH ×2 (09:55→23:11)
[2017-05-09] MEDS: Cyclobenzaprine 10 MG Tab PO PRN (20:42)
[2017-05-10] MEDS: fentaNYL 100 MCG/2 ML SDV IVPUSH PRN ×2 (00:28→03:31)
[2017-05-10] MEDS: Cyclobenzaprine 10 MG Tab PO PRN (04:51)
[2017-05-10] MEDS: hydrOXYzine HCl 100 MG/2 ML SDV IM PRN (08:09)
[2017-05-10] MEDS: Heparin Sodium 5,000 Units/ML Vial IV PRN (08:28)
[2017-05-10] MEDS: Heparin Sodium/D5W 25,000 UNITS/500 ML BAG IV SCH ×2 (09:08→18:22)
[2017-05-10] MEDS: D5 1/2 NS w/ 20 mEq/L KCl 1,000 ML IV SCH (11:57)
[2017-05-11] MEDS: D5 1/2 NS w/ 20 mEq/L KCl 1,000 ML IV SCH ×2 (01:15→14:01)
[2017-05-11] MEDS: Heparin Sodium/D5W 25,000 UNITS/500 ML BAG IV SCH ×2 (02:59→12:15)
[2017-05-11] MEDS: Acetaminophen/HYDROcodone 325-5 MG Tab PO PRN ×3 (10:37→21:06)
[2017-05-11] MEDS ORDERED: Warfarin 2.5 MG Tab PO ONE (17:31)
--- NOTE | 2017-05-11 17:38 | PCM.CONSN ---
- General Info Date of Service: 05/11/17 Functional Status: Reports: Pain Controlled, Tolerating Diet, Ambulating - Review of Systems General: Reports: Weakness. Denies: Fever, Chills Pulmonary: Reports: No Symptoms Cardiovascular: Reports: No Symptoms Gastrointestinal: Reports: Abdominal Pain, Flatus. Denies: Diarrhea, Nausea, Vomiting Systems Review Comment:: Mr. Agiuar is a 26-year-old gentleman who I been asked to see in follow-up by Dr. Enrique and Dr. Morin concerning anticoagulation and evaluation for hypercoagulability. He is stable following surgery Monday, has been walking in the halls and tolerating bariatric diet thus far. Vital signs have been stable and he has remained afebrile. Since surgery is been on IV heparin for management of his portal vein thrombosis. He denies that there is a family history of hypercoagulability and is never had a personal history of blood clots in the past. - Patient Data Vitals - Most Recent: Last Vital Signs Temp 99.1 F 05/11/17 16:00 Pulse 69 05/11/17 16:00 Resp 20 05/11/17 16:00 BP 118/68 05/11/17 16:00 Pulse Ox 94 L 05/11/17 16:00 Weight - Most Recent: 358 lb 6.4 oz I&O - Last 24 Hours: Intake & Output 05/11/17 05/11/17 05/11/17 06:59 14:59 22:59 Intake Total 1564 Output Total 630 1190 Balance 934 -1190 Lab Results Last 24 Hours: Laboratory Results - last 24 hr 05/08/17 05/08/17 05/08/17 Range/Units 08:17 08:39 08:39 APTT (27.0-36.0) sec Factor V Leiden Method Real time pcr Factor V Leiden Mutat Negative (NEG) Factor V Leiden Interp See below Factor V Mutat Interp See below Factor XI Activity 232 H (65-135) % Prothromb Mutat Method Real time pcr Prothrombin [id number] Mut Negative (NEG) Prothrombin Mut Interp See below Prothrombin Gene Info See below 05/10/17 05/11/17 Range/Units 20:25 04:50 APTT 51.1 H 58.4 H (27.0-36.0) sec Factor V Leiden Method Factor V Leiden Mutat (NEG) Factor V Leiden Interp Factor V Mutat Interp Factor XI Activity (65-135) % Prothromb Mutat Method Prothrombin [id number] Mut (NEG) Prothrombin Mut Interp Prothrombin Gene Info Med Orders - Current: Current Medications Hydrocodone Bitart/Acetaminophen ([place] 325-5 Mg) 1 - 2 tab PO Q4H PRN PRN Reason: Abdominal Pain Last Admin: 05/11/17 10:37 Dose: 1 tab Benzocaine/Menthol (Cepacol Sore Throat) 1 lozenge MUCMEM Q1H PRN PRN Reason: Sore Throat Cyclobenzaprine HCl (Flexeril) 5 - 10 mg PO TID PRN PRN Reason: back pain Last Admin: 05/10/17 04:51 Dose: 10 mg Diphenhydramine HCl (Benadryl) 50 mg IVPUSH Q4H PRN PRN Reason: Itching Enoxaparin Sodium (Lovenox) 160 mg SUBCUT Q12HR [facility] Fentanyl (Sublimaze) 10 - 30 mcg IVPUSH Q1H PRN PRN Reason: Pain (severe 7-10) Last Admin: 05/10/17 03:31 Dose: 30 mcg Hydroxyzine HCl (Vistaril) 50 mg IM Q4H PRN PRN Reason: Nausea Last Admin: 05/10/17 08:09 Dose: 50 mg Potassium Chloride/Dextrose/Sod Cl (D5 1/2 Ns W/ 20 Meq/L Kcl) 1,000 mls @ 75 mls/hr IV ASDIRECTED SUSANA Last Admin: 05/11/17 14:01 Dose: 75 mls/hr Warfarin Sodium (Coumadin) 7.5 mg PO ONETIME ONE Stop: 05/11/17 17:32 Discontinued Medications Bupivacaine HCl/Epinephrine Bitart (Marcaine 0.5%/Epinephrine 1:200,000) Confirm Administered Dose 50 ml .ROUTE .STK-MED ONE Stop: 05/07/17 23:56 Last Admin: 05/08/17 01:36 Dose: 50 ml Dexamethasone (Dexamethasone) Confirm Administered Dose 4 mg .ROUTE .STK-MED ONE Stop: 05/08/17 00:14 Fentanyl Citrate (Fentanyl) Confirm Administered Dose 500 mcg .ROUTE .STK-MED ONE Stop: 05/08/17 00:14 Fentanyl Citrate (Fentanyl In Ns 20 Mcg/Ml 30 Ml Supervisor Fleshing) 20 mcg IV ASDIRECTED SUSANA PRN Reason: Protocol Last Admin: 05/08/17 23:45 Dose: 10 mcg Fentanyl Citrate (Fentanyl In Ns 20 Mcg/Ml 30 Ml Supervisor Fleshing) 0 mcg IV ASDIRECTED SUSANA PRN Reason: Protocol Last Admin: 05/09/17 23:48 Dose: 600 mcg Glycopyrrolate (Robinul) Confirm Administered Dose 1 mg .ROUTE .STK-MED ONE Stop: 05/08/17 00:14 Heparin Sodium (Porcine) (Heparin Sodium) 2,500 units IV ONETIME ONE Stop: 05/08/17 10:01 Last Admin: 05/08/17 09:59 Dose: 2,500 units Heparin Sodium (Porcine) (Heparin Sodium) 0 units IV ASDIRECTED PRN PRN Reason: PER PTT HEPARIN PROTOCOL Last Admin: 05/10/17 08:28 Dose: 1,500 units Hydromorphone HCl (Dilaudid) 1 mg IVPUSH ONETIME ONE Stop: 05/07/17 23:33 Last Admin: 05/07/17 23:36 Dose: 1 mg Lactated Ringer's (Ringers, Lactated) Confirm Administered Dose 1,000 mls @ as directed .ROUTE .STK-MED ONE Stop: 05/08/17 00:38 Sodium Chloride (Normal Saline) 1,000 mls @ 125 mls/hr IV ASDIRECTED SUSANA Last Admin: 05/09/17 03:28 Dose: 125 mls/hr Heparin Sodium/Dextrose (Heparin 25,000 Units In D5w 500 Ml) 25,000 units in 500 mls @ 57.96 mls/hr IV TITRATE SUSANA; 18 UNITS/KG/HR PRN Reason: Protocol Last Admin: 05/11/17 12:15 Dose: 16.61 units/kg/hr, 53.5 mls/hr Lactated Ringer's (Ringers, Lactated) 1,000 ml IRR .STK-MED ONE Stop: 05/08/17 01:37 Last Admin: 05/08/17 01:36 Dose: 1,000 ml Naloxone HCl (Narcan) 0.1 mg IV ASDIRECTED PRN PRN Reason: DECREASED RESPIRATORY RATE Neostigmine Methylsulfate (Neostigmine) Confirm Administered Dose 5 mg .ROUTE .STK-MED ONE Stop: 05/08/17 00:14 Ondansetron HCl (Zofran) Confirm Administered Dose 4 mg .ROUTE .STK-MED ONE Stop: 05/08/17 00:14 Propofol (Diprivan 20 Ml) Confirm Administered Dose 200 mg .ROUTE .STK-MED ONE Stop: 05/08/17 00:14 Rocuronium [place] (Zemuron) Confirm Administered Dose 50 mg .ROUTE .STK-MED ONE Stop: 05/08/17 00:14 Rocuronium [place] (Zemuron) Confirm Administered Dose 50 mg .ROUTE .STK-MED ONE Stop: 05/08/17 01:41 Succinylcholine Chloride (Quelicin) Confirm Administered Dose 200 mg .ROUTE .STK -MED ONE Stop: 05/08/17 00:14 - Exam Lungs: Clear to Auscultation, Normal Respiratory Effort Cardiovascular: Regular Rate, Regular Rhythm, No Murmurs GI/Abdominal Exam: Normal Bowel Sounds, Soft, No Organomegaly, Tender. No: Distended, Guarding, Rigid, Rebound Consult PN Assessment/Plan Procedures: Procedures BLOOD TYPING SEROLOGIC ABO (10/10/16) BLOOD TYPING SEROLOGIC RH(D) (10/10/16) RBC ANTIBODY SCREEN (10/10/16) Problem List Initiated/Reviewed/Updated: Yes My Orders Last 24 Hours: My Active Orders 05/11/17 17:31 Warfarin [Coumadin] 7.5 mg PO ONETIME ONE 05/11/17 17:33 INR,PT,PROTHROMBIN TIME [COAG] Routine 05/11/17 17:45 Enoxaparin [Lovenox] 160 mg SUBCUT Q12HR 05/12/17 05:00 INR,PT,PROTHROMBIN TIME [COAG] Timed Plan: ASSESSMENT AND RECOMMENDATIONS PORTAL VEIN THROMBOSIS-stable on heparin since surgery. No family history of hypercoagulability and the patient denies any previous personal history of blood clots. Will plan to hold on evaluation of hypercoagulability at this time because potential influence on tests with fresh clot. -Discontinue IV heparin -Lovenox 160 mg subcutaneous every 12 hours -Warfarin 7.5 mg by mouth today -Plan for at least 5 days of overlap therapy -INR in a.m. -Plan for hypercoagulability evaluation in 6 months after he is off of anticoagulation for at least 2 weeks. STATUS POST PARTIAL SMALL BOWEL RESECTION -Postoperative care per Dr. Enrique
[2017-05-11] MEDS: Enoxaparin 80 MG/0.8 ML Syringe SUBCUT SCH (18:05)
[2017-05-11] MEDS: Cyclobenzaprine 10 MG Tab PO PRN (21:09)
[2017-05-12] MEDS: D5 1/2 NS w/ 20 mEq/L KCl 1,000 ML IV SCH (02:28)
[2017-05-12] MEDS: Acetaminophen/HYDROcodone 325-5 MG Tab PO PRN ×4 (05:13→22:36)
[2017-05-12] MEDS ORDERED: Enoxaparin 100 MG/1 ML Syringe ONE (05:17)
[2017-05-12] MEDS ORDERED: Enoxaparin 60 MG/0.6 ML Syringe ONE (05:17)
[2017-05-12] MEDS: Enoxaparin 80 MG/0.8 ML Syringe SUBCUT SCH ×2 (05:19→17:47)
[2017-05-12] MEDS ORDERED: Magnesium Hydroxide 400 MG/5 ML Susp 30 ML Cup PO ONE (09:00)
--- NOTE | 2017-05-12 09:29 | PN ---
DATE OF SERVICE: 05/11/2017 SUBJECTIVE: The patient continues to improve. He is having some GI activity. No nausea, vomiting, shortness of breath, or chest pain. OBJECTIVE: VITAL SIGNS: Stable. CARDIOVASCULAR: Regular rhythm and rate. RESPIRATORY: Lungs are clear to consultation bilaterally. ABDOMEN: Bowel sounds positive. Drains are serosanguineous output. ASSESSMENT: Status post bowel resection and portal venous thrombosis. PLAN: We will continue to work on diet and activity. However, the patient is transferred to the floor, just awaiting an unopened bed. We will also start him on clear liquid diet today. We are going to convert him over to p.o. pain medications and we will initiate Coumadin within the next 24 hours. Hesham Enrique MD /[id number]
--- NOTE | 2017-05-12 09:32 | PN ---
DATE OF SERVICE: 05/09/2017 SUBJECTIVE: The patient is doing well postoperatively. Pain is still an ongoing issue. No nausea, vomiting, shortness of breath, or chest pain. OBJECTIVE: VITAL SIGNS: Temperature 99.8, blood pressure 144/75, respirations 20, and 98% on 2 L. CARDIOVASCULAR: Regular rhythm and rate. RESPIRATORY: Lungs clear to consultation bilaterally except for mild crackles. ABDOMEN: Dressing intact. LABORATORY RESULTS: Show white blood cell count down to 12. ASSESSMENT: Status post small bowel resection and portal vein thrombosis. PLAN: We will continue to keep the patient nil per os today. In addition, we will continue the heparin protocol. We will continue to work on pain control today, and also had a continual DIKE SUPERVISOR dosing. Hesham Enrique MD /[id number]
--- NOTE | 2017-05-12 09:37 | PCM.CONSN ---
- General Info Date of Service: 05/12/17 Functional Status: Reports: Pain Controlled, Tolerating Diet, Ambulating - Review of Systems General: Denies: Fever, Chills Pulmonary: Reports: No Symptoms Cardiovascular: Reports: No Symptoms Gastrointestinal: Reports: Abdominal Pain, Flatus. Denies: Nausea, Vomiting Systems Review Comment:: Mr. Aguiar has remained stable over the past 24 hours, vital signs have been good and he has been afebrile. Abdominal pain seems to be improving on a daily basis and he has been able to ambulate always, currently tolerating diet. Started on oral anticoagulation with warfarin yesterday, INR has increased modestly. - Patient Data Vitals - Most Recent: Last Vital Signs Temp 97.4 F 05/12/17 08:17 Pulse 67 05/12/17 08:17 Resp 16 05/12/17 08:17 BP 132/63 05/12/17 08:17 Pulse Ox 92 L 05/12/17 08:17 Weight - Most Recent: 358 lb 6.4 oz I&O - Last 24 Hours: Intake & Output 05/11/17 05/12/17 05/12/17 22:59 06:59 14:59 Intake Total 1620 800 Output Total 1505 130 40 Balance 115 670 -40 Lab Results Last 24 Hours: Laboratory Results - last 24 hr 05/11/17 05/12/17 Range/Units 17:44 04:57 PT 12.3 H 14.6 H (9.5-12.0) sec INR 1.14 1.35 H (0.80-1.20) APTT 31.7 (27.0-36.0) sec Med Orders - Current: Current Medications Hydrocodone Bitart/Acetaminophen ([place] 325-5 Mg) 1 - 2 tab PO Q4H PRN PRN Reason: Abdominal Pain Last Admin: 05/12/17 05:13 Dose: 2 tab Benzocaine/Menthol (Cepacol Sore Throat) 1 lozenge MUCMEM Q1H PRN PRN Reason: Sore Throat Bisacodyl (Dulcolax) 10 mg PO BID SUSANA Cyclobenzaprine HCl (Flexeril) 5 - 10 mg PO TID PRN PRN Reason: back pain Last Admin: 05/11/17 21:09 Dose: 10 mg Diphenhydramine HCl (Benadryl) 50 mg IVPUSH Q4H PRN PRN Reason: Itching Last Admin: 05/12/17 02:27 Dose: 50 mg Enoxaparin Sodium (Lovenox) 160 mg SUBCUT Q12H SUSANA Last Admin: 05/12/17 05:19 Dose: 160 mg Fentanyl (Sublimaze) 10 - 30 mcg IVPUSH Q1H PRN PRN Reason: Pain (severe 7-10) Last Admin: 05/10/17 03:31 Dose: 30 mcg Hydroxyzine HCl (Vistaril) 50 mg IM Q4H PRN PRN Reason: Nausea Last Admin: 05/10/17 08:09 Dose: 50 mg Potassium Chloride/Dextrose/Sod Cl (D5 1/2 Ns W/ 20 Meq/L Kcl) 1,000 mls @ 75 mls/hr IV ASDIRECTED [facility] Last Admin: 05/12/17 02:28 Dose: 75 mls/hr Warfarin Sodium (Coumadin) 7.5 mg PO ONETIME ONE Stop: 05/12/17 13:01 Discontinued Medications Bupivacaine HCl/Epinephrine Bitart (Marcaine 0.5%/Epinephrine 1:200,000) Confirm Administered Dose 50 ml .ROUTE .STK-MED ONE Stop: 05/07/17 23:56 Last Admin: 05/08/17 01:36 Dose: 50 ml Dexamethasone (Dexamethasone) Confirm Administered Dose 4 mg .ROUTE .STK-MED ONE Stop: 05/08/17 00:14 Enoxaparin Sodium (Lovenox) Confirm Administered Dose 100 mg .ROUTE .STK-MED ONE Stop: 05/12/17 05:18 Last Admin: 05/12/17 05:21 Dose: Not Given Enoxaparin Sodium (Lovenox) Confirm Administered Dose 60 mg .ROUTE .STK-MED ONE Stop: 05/12/17 05:18 Last Admin: 05/12/17 05:22 Dose: Not Given Fentanyl Citrate (Fentanyl) Confirm Administered Dose 500 mcg .ROUTE .STK-MED ONE Stop: 05/08/17 00:14 Fentanyl Citrate (Fentanyl In Ns 20 Mcg/Ml 30 Ml Configuration Technician) 20 mcg IV ASDIRECTED SUSANA PRN Reason: Protocol Last Admin: 05/08/17 23:45 Dose: 10 mcg Fentanyl Citrate (Fentanyl In Ns 20 Mcg/Ml 30 Ml Configuration Technician) 0 mcg IV ASDIRECTED SUSANA PRN Reason: Protocol Last Admin: 05/09/17 23:48 Dose: 600 mcg Glycopyrrolate (Robinul) Confirm Administered Dose 1 mg .ROUTE .STK-MED ONE Stop: 05/08/17 00:14 Heparin Sodium (Porcine) (Heparin Sodium) 2,500 units IV ONETIME ONE Stop: 05/08/17 10:01 Last Admin: 05/08/17 09:59 Dose: 2,500 units Heparin Sodium (Porcine) (Heparin Sodium) 0 units IV ASDIRECTED PRN PRN Reason: PER PTT HEPARIN PROTOCOL Last Admin: 05/10/17 08:28 Dose: 1,500 units Hydromorphone HCl (Dilaudid) 1 mg IVPUSH ONETIME ONE Stop: 05/07/17 23:33 Last Admin: 05/07/17 23:36 Dose: 1 mg Lactated Ringer's (Ringers, Lactated) Confirm Administered Dose 1,000 mls @ as directed .ROUTE .STK-MED ONE Stop: 05/08/17 00:38 Sodium Chloride (Normal Saline) 1,000 mls @ 125 mls/hr IV ASDIRECTED SUSANA Last Admin: 05/09/17 03:28 Dose: 125 mls/hr Heparin Sodium/Dextrose (Heparin 25,000 Units In D5w 500 Ml) 25,000 units in 500 mls @ 57.96 mls/hr IV TITRATE SUSANA; 18 UNITS/KG/HR PRN Reason: Protocol Last Admin: 05/11/17 12:15 Dose: 16.61 units/kg/hr, 53.5 mls/hr Lactated Ringer's (Ringers, Lactated) 1,000 ml IRR .STK-MED ONE Stop: 05/08/17 01:37 Last Admin: 05/08/17 01:36 Dose: 1,000 ml Magnesium Hydroxide (Milk Of Magnesia) 30 ml PO ONETIME ONE Stop: 05/12/17 09:01 Naloxone HCl (Narcan) 0.1 mg IV ASDIRECTED PRN PRN Reason: DECREASED RESPIRATORY RATE Neostigmine Methylsulfate (Neostigmine) Confirm Administered Dose 5 mg .ROUTE .STK-MED ONE Stop: 05/08/17 00:14 Ondansetron HCl (Zofran) Confirm Administered Dose 4 mg .ROUTE .STK-MED ONE Stop: 05/08/17 00:14 Propofol (Diprivan 20 Ml) Confirm Administered Dose 200 mg .ROUTE .STK-MED ONE Stop: 05/08/17 00:14 Rocuronium [place] (Zemuron) Confirm Administered Dose 50 mg .ROUTE .STK-MED ONE Stop: 05/08/17 00:14 Rocuronium [place] (Zemuron) Confirm Administered Dose 50 mg .ROUTE .STK-MED ONE Stop: 05/08/17 01:41 Succinylcholine Chloride (Quelicin) Confirm Administered Dose 200 mg .ROUTE .STK -MED ONE Stop: 05/08/17 00:14 Warfarin Sodium (Coumadin) 7.5 mg PO ONETIME ONE Stop: 05/11/17 17:32 Last Admin: 05/11/17 18:05 Dose: 7.5 mg - Exam Quality Assessment: DVT Prophylaxis General: Alert, Oriented, Cooperative, Mild Distress Lungs: Clear to Auscultation, Normal Respiratory Effort Cardiovascular: Regular Rate, Regular Rhythm, No Murmurs GI/Abdominal Exam: Normal Bowel Sounds, Soft, No Organomegaly, Tender. No: Distended, Guarding, Rigid, Rebound Extremities: Non-Tender, No Pedal Edema Skin: Warm, Dry, Intact Consult PN Assessment/Plan Procedures: Procedures BLOOD TYPING SEROLOGIC ABO (10/10/16) BLOOD TYPING SEROLOGIC RH(D) (10/10/16) RBC ANTIBODY SCREEN (10/10/16) Problem List Initiated/Reviewed/Updated: Yes My Orders Last 24 Hours: My Active Orders 05/11/17 18:00 Enoxaparin [Lovenox] 160 mg SUBCUT Q12H Plan: ASSESSMENT AND RECOMMENDATIONS PORTAL VEIN THROMBOSIS-transition to Lovenox yesterday from IV heparin and started on oral anticoagulation with warfarin. INR has increased modestly since yesterday. -Lovenox 160 mg subcutaneous every 12 hours -Warfarin 7.5 mg by mouth today -Plan for at least 5 days of overlap therapy -INR in a.m. -Plan for hypercoagulability evaluation in 6 months after he is off of anticoagulation for at least 2 weeks. STATUS POST PARTIAL SMALL BOWEL RESECTION -Postoperative care per Dr. Enrique
--- NOTE | 2017-05-12 09:50 | PN ---
DATE OF SERVICE: 05/10/2017 SUBJECTIVE: The patient doing better today. Pain is slightly improved. No nausea, vomiting, shortness of breath, or chest pain. Not passing any gas or any GI activity yet. OBJECTIVE: VITAL SIGNS: Stable. Temperature 99.4, blood pressure 135/74, pulse 79, respirations 14, and 96% on room air. CARDIOVASCULAR: Regular rhythm and rate. RESPIRATORY: Minimal crackles bilaterally. Incision is healing well. No signs of cellulitis or infection. LABORATORY RESULTS: PTT of 51. ASSESSMENT AND PLAN: I will continue with same plan. We will wait for GI activity. Continue the heparin weight-based protocol. In addition, he will remain in the ICU today and probably leave the ICU tomorrow if he continues to improve. Hesham Enrique MD /[id number]
[2017-05-12] MEDS: Bisacodyl 5 MG Tab PO SCH ×2 (09:56→21:04)
[2017-05-12] MEDS ORDERED: Ondansetron 4 MG/2 ML SDV IVPUSH PRN (11:02)
[2017-05-12] MEDS: Metoclopramide 10 MG/2 ML SDV IV SCH ×2 (11:14→17:47)
[2017-05-12] MEDS ORDERED: Warfarin 2.5 MG Tab PO ONE (13:00)
[2017-05-12] MEDS ORDERED: Ondansetron 4 MG Tab.DIS PO PRN (23:57)
[2017-05-12] MEDS ORDERED: Metoclopramide 10 MG Tab PO PRN ×2 (23:57→23:59)
[2017-05-13] MEDS ORDERED: diphenhydrAMINE 25 MG Cap PO PRN (00:01)
[2017-05-13] MEDS: Cyclobenzaprine 10 MG Tab PO PRN (04:05)
[2017-05-13] MEDS: Enoxaparin 80 MG/0.8 ML Syringe SUBCUT SCH ×2 (05:51→17:29)
[2017-05-13] MEDS: Bisacodyl 5 MG Tab PO SCH ×2 (08:27→20:00)
[2017-05-13] MEDS ORDERED: Warfarin 5 MG Tab PO SCH (08:30)
--- NOTE | 2017-05-13 10:31 | PN ---
DATE OF SERVICE: 05/13/2017 SUBJECTIVE: Burt's pain has been controlled. JPs have put out 45 and 65 mL of a light pink serosanguineous drainage. INR this morning is 3.75. PT is 47.1. He received Coumadin 7.5 mg the last 2 days. Tolerating diet well and ambulating. His IV did infiltrate yesterday, but his oral intake is adequate at 2900 mL and urinary output is 2400. REVIEW OF SYSTEMS: Remainder of review of systems negative for any pertinent positives and negatives. He is having several bowel movements per nursing report. OBJECTIVE: GENERAL: Burt Aguiar is a pleasant 26-year-old male. He is alert and oriented. VITAL SIGNS: TPR 98.2, 69, 17. Blood pressure 139/69. HEENT: Negative. NECK: Supple. HEART: Regular rate and rhythm. LUNGS: Clear. ABDOMEN: Dressing is dry and intact. Abdominal binder is on. EXTREMITIES: Without peripheral edema. ASSESSMENT: Diagnostic laparoscopy, resection of small bowel anastomosis and resection of additional small bowel resection of additional anastomosis. Date of surgery is 05/07/2017, Hesham Enrique MD, surgeon. PLAN: 1. Step 2 gastric bypass diet without cereal. 2. Dressing off, may shower. 3. Schedule upper GI barium swallow using water-soluble contrast, 05/14/2017 at 0400 hours. 4. Coumadin 1.5 mg one time p.o. today at 1300 hours. 5. Good pulmonary toilet encouraged. 6. We will evaluate p.r.n. or in a.m. Sinai Zapata PA-C /[id number]
[2017-05-13] MEDS: Acetaminophen/HYDROcodone 325-5 MG Tab PO PRN ×3 (10:40→22:10)
[2017-05-14] MEDS: Acetaminophen/HYDROcodone 325-5 MG Tab PO PRN ×5 (02:54→23:32)
[2017-05-14] MEDS: Enoxaparin 80 MG/0.8 ML Syringe SUBCUT SCH ×2 (05:23→18:05)
[2017-05-14] MEDS ORDERED: Sodium Chloride 0.9% 10 ML Syringe IV PRN (08:07)
[2017-05-14] MEDS ORDERED: Magnesium Sulfate/Water 2 GM in Premix Bag 1 BAG IV SCH (09:00)
[2017-05-14] MEDS: Magnesium Oxide 400 MG Tab PO SCH ×2 (10:23→21:00)
[2017-05-14] MEDS: Bisacodyl 5 MG Tab PO SCH (10:23)
[2017-05-14] MEDS: hydrOXYzine HCl 100 MG/2 ML SDV IM PRN (11:09)
[2017-05-14] MEDS: Cyclobenzaprine 10 MG Tab PO PRN (11:59)
[2017-05-15] MEDS: Acetaminophen/HYDROcodone 325-5 MG Tab PO PRN ×5 (04:04→20:39)
[2017-05-15] MEDS: Enoxaparin 80 MG/0.8 ML Syringe SUBCUT SCH ×2 (05:45→17:34)
--- NOTE | 2017-05-15 07:56 | PN ---
DATE OF SERVICE: 05/15/2017 SUBJECTIVE: Burt's upper GI was normal yesterday. This morning his PT is 34.9, INR is 3.11. He received no Coumadin yesterday. He has been up ambulating. REVIEW OF SYSTEMS: Remainder of review of systems negative for any pertinent positives and negatives. OBJECTIVE: GENERAL: Burt Aguiar is a 26-year-old male. VITAL SIGNS: TPR is 96.8, 95, 16, blood pressure 159/80. HEENT: Negative. NECK: Supple. HEART: Regular rate and rhythm. LUNGS: Clear. ABDOMEN: Dressings dry and intact. The abdominal binder is on. JUAN CARLOS drains intact. EXTREMITIES: Without peripheral edema. ASSESSMENT: 1. Diagnostic laparotomy resection of small bowel anastomosis and resection of additional small bowel, resection of additional anastomosis. Date of surgery 05/07/2017. Hesham Enrique M.D. is surgeon. 2. Portal vein thrombosis. PLAN: No Coumadin today. Check CBC, CMP, magnesium, phosphorus, PT, and INR in a.m. Good pulmonary toilet encouraged. We will evaluate p.r.n. or in a.m. Plan to discharge in a.m. Sinai Zapata PA-C /[id number]
[2017-05-15] MEDS: Magnesium Oxide 400 MG Tab PO SCH ×2 (08:03→20:40)
--- NOTE | 2017-05-15 09:03 | PN ---
DATE OF SERVICE: 05/12/2017 The patient has been afebrile with stable vital signs. Oral intake has been fair. He is on Step-2 type diet with [place] and other supplements. Dr. Fraire felt that we should discount the current hypercoagulability reports and treat the patient perhaps for three months and, sometime thereafter, obtain hypercoagulability workup. The patient was started on Lovenox yesterday, as well as Coumadin. Otherwise, maximize activity, work with pulmonary toilet, and give him some bowel stimulation today. Evelio Morin MD /[id number]
--- NOTE | 2017-05-15 10:33 | PN ---
DATE OF SERVICE: 05/14/2017 The patient has been afebrile with stable vital signs. No major problems were noted overnight. We did an upper GI x-ray this morning, which showed good flow through the small bowel. Otherwise, oral intake has been fairly good and will resume a step-2 gastric bypass diet today with supplements. His INR is quite high at 4.04. We will hold the Coumadin today and decrease the Lovenox dose to 80 mg q.12 hours. He will be 5 days with overlap of the Coumadin and heparin-type medications tomorrow. He will likely be discharged home tomorrow. Magnesium is marginally low and will supplement today. Evelio Morin MD /[id number]
--- NOTE | 2017-05-15 11:28 | CR ---
UGI w Small Bowel wo Air HISTORY: Revision of RNY FINDINGS: After administration of oral contrast, upright views were obtained. Post operative changes gastric bypass. Surgical drains in place. No evidence for leak. Contrast passes freely into proximal small bowel loops. Skin suly. IMPRESSION: No evidence for leak or obstruction.
[2017-05-16] MEDS: Acetaminophen/HYDROcodone 325-5 MG Tab PO PRN ×3 (04:10→12:45)
[2017-05-16] MEDS: Enoxaparin 80 MG/0.8 ML Syringe SUBCUT SCH (06:59)
[2017-05-16 07:10] VITALS: BP 136/79
--- NOTE | 2017-05-16 08:14 | DISCH ---
ADMISSION DIAGNOSES: 1. Status post Pearl-en-Y gastric bypass surgery. 2. Extensive portal vein thrombosis. 3. Partial small bowel obstruction. 4. Morbid obesity. 5. Unspecified surgical malabsorption. 6. B12 deficiency. 7. Sleep apnea with use of CPAP. 8. Chronic back pain. DISCHARGE DIAGNOSES: Diagnostic laparotomy, resection of small bowel anastomosis, resection of additional small bowel, and resection of additional anastomosis. Date of surgery, 05/07/2017; Hesham Enrique MD, surgeon. HISTORY: Burt Aguiar is a 26-year-old male who had a Pearl-en-Y approximately 6 days prior to his second surgery. He presented to an outside facility and a CT scan revealed portal vein thrombosis in conjunction with a concerning area of small bowel. After preoperative evaluation and discussion of possible risks and possible complications, he wished to proceed with surgical procedure. HOSPITAL COURSE: Burt had his surgery on 05/07/2017. He had no operative complications. On postop day #1, he had the heparin IV. He remained n.p.o. His urine output was adequate. Hemoglobin remained within normal limits. His pain was controlled. On postop day #2, he remained to be on the heparin. Pain was controlled. He was followed with his anticoagulation therapy with the hospitalist. On 05/11/2017, he was started on a step-1 gastric bypass diet. On 05/13/2017, he was started on a step-2 gastric bypass diet without cereal. An upper GI was done with a small bowel follow-through on 05/14/2017, and that was normal. His activity was good. His pain was well managed. He was bridged to Coumadin and was able to be discharged to home on 05/16/2017. PHYSICAL EXAMINATION: GENERAL: Burt Aguiar is a 26-year-old male. VITAL SIGNS: Height is 5 feet 10 inches. Weight is 354 pounds. TPR is 95.9, 80, 18, and blood pressure 136/79. HEENT: Negative. NECK: Supple. HEART: Regular rate and rhythm. LUNGS: Clear. ABDOMEN: [place] were removed and approximately 3 inches of incision superficially opened. A 4x4 will be laid in the open incision, and the patient will still be able to be discharged to home. Steri-Strips were applied above and below the incision, 4x4s over JUAN CARLOS drain sites. Abdominal binder is on. EXTREMITIES: Without peripheral edema. DISPOSITION: Discharged to home. CONDITION: Stable and improving. FOLLOWUP APPOINTMENT: With Sinai Zapata PA-C, on 05/22/2017 at 10:30 a.m. and with a PT and INR before appointment. HOME MEDICATIONS: 1. [place] 5/325 mg 1 to 2 every 4 hours p.r.n. pain, #40. 2. Magnesium oxide 400 mg twice daily, #100, 11 refills. 3. Zofran ODT 4 mg oral q.4 hours p.r.n. nausea. 4. Coumadin 2 mg oral daily, #30. 5. He is to resume no other medications than those stated. DISCHARGE DIET: Step-2 gastric bypass diet with no cereal. ACTIVITY: No lifting greater than 10 pounds for 6 weeks. Other activity, walk at least 6 times daily, distance and time as tolerated. Driving, do not drive while on pain medication. May shower. DISCHARGE INSTRUCTIONS: Notify provider if any fever, increased pain, nausea, or vomiting. Keep site clean and dry. Use incentive spirometer 10 times every hour while awake.
[2017-05-16] MEDS: Magnesium Oxide 400 MG Tab PO SCH (08:45)
--- NOTE | 2017-05-26 09:21 | CONS ---
DATE OF SERVICE: 05/08/2017 REFERRING PHYSICIAN: CONSULTING PHYSICIAN: Hesham Enrique MD Consultation from Dr. Ball. REASON FOR CONSULTATION: Evaluation of abdominal pain. HISTORY OF PRESENT ILLNESS: This is a 26-year-old male who underwent a gastric bypass approximately six days ago by Dr. Morin. He has pain, which has progressed over the last 48 hours. The patient was seen in outside facility and a CT scan was performed, which I did review, which showed extensive portal vein thrombosis and concern for small-bowel infarction. He has pain, which is 3-4/10, is made worse and better by position. This is obviously a new problem for him. PAST MEDICAL HISTORY: GERD, back pain, obesity, eczema, sleep apnea. PAST SURGICAL HISTORY: Pearl-en-Y as above. SOCIAL HISTORY: He presents with his family today. FAMILY HISTORY: Noncontributory, but was reviewed. REVIEW OF SYSTEMS: GENERAL: The patient is in moderate pain. HEENT: No symptoms. CARDIOVASCULAR: No chest pain. RESPIRATORY: No shortness of breath. GASTROINTESTINAL: Limited bowel movements for the last couple days. GENITOURINARY: No dysuria. The remainder of the review of systems was reviewed and is negative. PHYSICAL EXAMINATION: VITAL SIGNS: He is afebrile. Blood pressure 145/68, pulse 93, respirations 16, 94% on room air. HEENT: Pupils are equal. NECK: Supple. GENERAL: The patient is in moderate distress. ABDOMEN: Pain with palpation, diffuse. Positive rebound and guarding. EXTREMITIES: Full range of motion. Strength 5/5. NEUROLOGICAL: Oriented x3. PSYCH: No gross depression. LABORATORY RESULTS: Show an elevated white blood count of 18,000. A CT scan, which I did review shows portal vein thrombosis. ASSESSMENT AND PLAN: 1. Portal vein thrombosis. The patient will be started on a weight-based protocol for anticoagulation. 2. Abdominal status. The patient will undergo a surgical evaluation to delineate the status and severity of his problem. We will start the diagnostic laparoscopy and then open as needed. 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 We discussed risks, benefits, alternatives, limitations including but not limited to infection, bleeding, and perforation. We also discussed open surgery and the requirement for full bowel resection. We also discussed that the patient is a very high risk patient due to his portal vein thrombosis. The patient understands these risks and wishes to proceed. Hesham Enrique MD /[id number]
== END 2017-05-16 13:21 | disposition home or self-care (01) | DRG 344 ==
LOC: JP.ED 23:12 → JP.SDS 05-08 00:03 → JP.ICU 05-08 00:27 → JP.2SS 05-12 14:26
PROVIDERS: ADMIT Surgery; ATTEND Surgery
PROC: 0DBA0ZX Excision of Jejunum, Open Approach, Diagnostic (ICD-10-PCS; principal; 2017-05-07)
DX: K55.9 Vascular disorder of intestine, unspecified (principal); I81 Portal vein thrombosis; K91.2 Postsurgical malabsorption, not elsewhere classified; Z68.43 Body mass index [BMI] 50.0-59.9, adult; Z53.31 Laparoscopic surgical procedure converted to open procedure; Z98.84 Bariatric surgery status; Z98.0 Intestinal bypass and anastomosis status; Z98.890 Other specified postprocedural states; E53.8 Deficiency of other specified B group vitamins; E66.01 Morbid (severe) obesity due to excess calories; M54.9 Dorsalgia, unspecified; G89.29 Other chronic pain; G47.33 Obstructive sleep apnea (adult) (pediatric); K21.9 Gastro-esophageal reflux disease without esophagitis; H54.7 Unspecified visual loss; Z87.891 Personal history of nicotine dependence; Z91.013 Allergy to seafood; Z91.048 Other nonmedicinal substance allergy status; Z79.01 Long term (current) use of anticoagulants
CPT/HCPCS: 36415; 74245; 74245-26; 80048; 80053; 81240; 81241; 83735; 84100; 85025; 85027; 85240; 85250; 85270; 85300; 85303; 85306; 85335; 85598; 85610; 85611; 85613; 85670; 85730; 85732; 86146; 86147; 86850; 86900; 86901; 86920; 86922; 88307; 94762; 96374; 99284-25; A9270-GY; J0330; J1100; J1170; J1200; J1644; J1650; J2405; J2704; J2710; J2765; J3010; J3410; J3480; J7040; J7120